=== PATIENT | female | born 1960 | race Caucasian/White ===

== ENCOUNTER 2018-04-12 10:17 | Observation (INO) ==
--- NOTE | 2018-04-12 11:22 | XR ---
EXAM DATE: 04/12/2018 11:19 AM EST AGE/SEX: 57 years / Female INDICATIONS: . Chest pain on and off x 3 weeks. CLINICAL DATA: This is the patient's initial encounter. Patient reports that signs and symptoms have been present for 1 day and indicates a pain score of 0/10. MEDICAL/SURGICAL HISTORY: None. None. COMPARISON: No prior exams available for comparison. FINDINGS: PA and lateral views of the chest demonstrate a normal-sized cardiac silhouette. There is no effusion , consolidation, or pneumothorax. The bones and soft tissues demonstrate no acute abnormality. CONCLUSION: No acute cardiopulmonary abnormality is identified. Electronically signed by: Wesly Ferraro MD 04/12/2018 11:20 AM EST
[2018-04-12 11:24] LABS: Baso # (Auto) 0.1 th/mm3 (0.0-0.2); Baso % (Auto) 0.9 % (0.0-2.0); Eos # (Auto) 0.1 th/mm3 (0.0-0.4); Eos % (Auto) 1.3 % (0.0-4.0); Hematocrit 37.9 % (35.0-46.0); Hemoglobin 13.4 gm/dL (11.6-15.3); Lymph # (Auto) 2.7 th/mm3 (1.0-4.8); Lymph % (Auto) 43.1 % (9.0-44.0); Mean Corpuscular HGB Conc 35.2 % (32.0-36.0); Mean Corpuscular Hemoglobin 32.8 pg (27.0-34.0); Mean Corpuscular Volume 93.3 fL (80.0-100.0); Mean Platelet Volume 7.7 fL (7.0-11.0); Mono # (Auto) 0.5 th/mm3 (0.0-0.9); Mono % (Auto) 7.9 % (0.0-8.0); Neut # (Auto) 2.9 th/mm3 (1.8-7.7); Neut % (Auto) 46.8 % (16.0-70.0); Platelet Count 239 th/mm3 (150-450); Red Blood Count 4.07 mil/mm3 (4.00-5.30); Red Cell Distribution Width 12.5 % (11.6-17.2); White Blood Count 6.2 th/mm3 (4.0-11.0)
[2018-04-12 11:31] LABS: Prothrombin Time 10.3 sec (9.8-11.6)
[2018-04-12 11:39] LABS: Alanine Aminotransferase 32 U/L (10-53); Albumin 3.6 g/dL (3.4-5.0); Anion Gap 7 meq/L (5-15); Aspartate Aminotransferase 13 U/L (15-37); Blood Urea Nitrogen 11 mg/dL (7-18); Calcium 8.2 mg/dL (8.5-10.1); Carbon Dioxide 26.5 meq/L (21.0-32.0); Chloride 106 meq/L (98-107); Glomerular Filtration Rate 69 mL/min (>89); Glucose,Random 203 mg/dL (74-106); Sodium 139 meq/L (136-145)
[2018-04-12 11:43] LABS: Alkaline Phosphatase 87 U/L (45-117); Total Protein 7.5 g/dL (6.4-8.2)
--- NOTE | 2018-04-12 14:21 | ED ---
HPI General Chief Complaint: Chest Pain Stated Complaint: Chest pain/Dizziness Time Seen by Provider: 04/12/18 13:22 Source: patient and family Mode of arrival: ambulatory Limitations: no limitations History of Present Illness HPI narrative: Ms Cabezas is a 57 year old female who presents to the ED complaining of dizziness, palpitations, and SOB. The patient states that starting several weeks ago she began having episodes of dizziness, palpitations , and SOB that were intermittent and occurred every few days. She states that when this happens she feels like she cannot get air in and the room is spinning. She flew to [place] from [place] on Saturday 04/07 and has had symptoms every day since. Today the symptoms have been constant. Her friend, who is a nurse, states that when she had the first episode here, she took her vitals and during the episode the patient's BP was 136/64, P 40, and SpO2 89%. The patient states that when this happens she can cough or breathe deeply through her nose and the symptoms will stop. She also describes a dull ache in the left side of her chest that occurs intermittently and is rated as a 3-4/10. The patient has CAD and has had several stents placed in the past. She states that this pain in her chest feels similar to when she had to have the stents placed but it was constant then. The patient's PMH is also significant for rheumatic heart disease with all 4 valves involved. She denies taking a blood thinner and has never had a DVT or PE. She last saw her manager spanish 1 year ago and a stress test was performed. She thinks her last echocardiogram was 2-3 years ago. The patient smokes 1 pack of cigarettes per day but denies alcohol or drug use. Related Data Home Medications Medication Instructions Recorded Confirmed atenolol 12.5 mg PO DAILY 04/12/18 04/12/18 coenzyme Q10 [CoQ-10] 400 mg PO DAILY 04/12/18 04/12/18 fluoxetine [Prozac] 20 mg PO DAILY 04/12/18 04/12/18 isosorbide mononitrate 10 mg PO DAILY 04/12/18 04/12/18 vfrikxrsraox-lxz-nrdn-FA-vit K 1 tab-cap PO DAILY 04/12/18 04/12/18 [Multi For Her] sulfamethoxazole-trimethoprim 1 tab PO DAILY 04/12/18 04/12/18 Allergies Allergy/AdvReac Type Severity Reaction Status Date / Time codeine Allergy Vomiting Verified 04/12/18 10:27 hydromorphone [From Dilaudid] Allergy Vomiting Verified 04/12/18 10:27 Review of Systems ROS: all other systems reviewed are negative [facility] Medical History Medical History Coronary stent patent (Acute) Fibromyalgia (Acute) Hyperlipemia (Acute) Hypertension (Acute) Rheumatic heart disease (Acute) Social History Social History Substance History: No History of Abuse Second Hand Smoke Exposure: No Smoking Status: Current every day smoker Tobacco Type: E-Cigarettes How Often Do You Have a Drink Containing Alcohol: Never Recent Travel in [facility] within the Last 8 Weeks: No Recent Out of Country Travel within the Last 8 Weeks: No Immunization History Tetanus Immunization: >5 Years Exam Narrative Exam Narrative: GENERAL: Patient is a well developed well nourished female in [facility]. SKIN: Warm and dry. HEAD: Atraumatic. Normocephalic. EYES: Pupils equal and round and reactive. No scleral icterus. No injection or drainage. ENT: No nasal bleeding or discharge. Mucous membranes pink and moist. NECK: Trachea midline. No JVD. CARDIOVASCULAR: Regular rate and rhythm. No rubs or gallops. RESPIRATORY: No accessory muscle use. Clear to auscultation. Breath sounds equal bilaterally. GASTROINTESTINAL: Abdomen soft, non-tender, nondistended. Hepatic and splenic margins not palpable. MUSCULOSKELETAL: Extremities without clubbing, cyanosis, or edema. No obvious deformities. Full ROM of the upper and lower extremities bilaterally. 2+ pulses in the upper and lower extremities bilaterally. NEUROLOGICAL: Awake and alert. No obvious cranial nerve deficits. Motor grossly within normal limits. Five out of 5 muscle strength in the arms and legs. Normal speech. PSYCHIATRIC: Appropriate mood and affect; insight and judgment normal. Course Initial Documented Vital Signs Temperature 98.7 F 04/12/18 10:18 Pulse Rate 72 04/12/18 10:18 Respiratory Rate 16 04/12/18 10:18 Blood Pressure 166/72 H 04/12/18 10:18 Pulse Oximetry 98 04/12/18 10:18 Last Documented Vital Signs Temperature 98.7 F 04/12/18 10:18 Pulse Rate 68 04/12/18 14:40 Respiratory Rate 17 04/12/18 14:40 Blood Pressure 156/67 H 04/12/18 14:40 Pulse Oximetry 98 04/12/18 14:40 Medical Decision Making MDM Narrative Medical decision making narrative: 57-year-old female that presents to the ED for evaluation of chest pain. Patient was properly examined and was found to have signs and symptoms of unclear etiology. Patient does have significant cardiac disease. Concern for PE. CTA as well as labs were done. Labs were initially done in triage and were all negative. Patient was reassured. CTA was negative but did show coronary artery disease. At this time I recommend admission for further evaluation and treatment. Patient is in agreement with this. Patient was given aspirin here. Currently chest pain-free so no nitroglycerin was given. Case discussed with my attending Dr. villalobos who agrees with admission plan. Admitted to chest pain center by me. Medical Screen Exam Complete: Yes Emergency Medical Condition: Yes Differential Diagnosis Differential Diagnosis: chest pain vs atypical chest pain vs PE vs arrhythmia Medical Records Medical records reviewed: Yes I reviewed the patient's medical records. Lab Data Lab results reviewed: Yes I reviewed the patient's lab results. Result diagrams: 04/12/18 10:53 04/12/18 10:53 Lab Results 04/12/18 04/12/18 04/12/18 Range/Units 10:53 10:53 10:53 WBC 6.2 (4.0-11.0) th/mm3 RBC 4.07 (4.00-5.30) mil/mm3 Hgb 13.4 (11.6-15.3) gm/dL Hct 37.9 (35.0-46.0) % MCV 93.3 (80.0-100.0) fL MCH 32.8 (27.0-34.0) pg MCHC 35.2 (32.0-36.0) % RDW 12.5 (11.6-17.2) % Plt Count 239 (150-450) th/mm3 MPV 7.7 (7.0-11.0) fL Neut % (Auto) 46.8 (16.0-70.0) % Lymph % (Auto) 43.1 (9.0-44.0) % [place] % (Auto) 7.9 (0.0-8.0) % Eos % (Auto) 1.3 (0.0-4.0) % Baso % (Auto) 0.9 (0.0-2.0) % Neut # (Auto) 2.9 (1.8-7.7) th/mm3 Lymph # (Auto) 2.7 (1.0-4.8) th/mm3 [place] # (Auto) 0.5 (0.0-0.9) th/mm3 Eos # (Auto) 0.1 (0.0-0.4) th/mm3 Baso # (Auto) 0.1 (0.0-0.2) th/mm3 WBC Differential . Differential Comment Auto diff final PT 10.3 (9.8-11.6) sec INR 1.0 Ratio Sodium 139 (136-145) meq/L Potassium 4.0 (3.5-5.1) meq/L Chloride 106 (98-107) meq/L Carbon Dioxide 26.5 (21.0-32.0) meq/L Anion Gap 7 (5-15) meq/L BUN 11 (7-18) mg/dL Creatinine 0.85 (0.50-1.00) mg/dL Estimated GFR 69 L (>89) mL/min Random Glucose 203 H (74-106) mg/dL Calcium 8.2 L (8.5-10.1) mg/dL Total Bilirubin 0.2 (0.2-1.0) mg/dL AST 13 L (15-37) U/L ALT 32 (10-53) U/L Alkaline Phosphatase 87 (45-117) U/L Troponin I Less than 0.02 L (0.02-0.05) ng/mL Total Protein 7.5 (6.4-8.2) g/dL Albumin 3.6 (3.4-5.0) g/dL Imaging Data Attestation: I personally reviewed and interpreted this imaging study as follows : Radiologist's impression: Chest X-Ray 04/12/18 10:29 CONCLUSION: No acute cardiopulmonary abnormality is identified. Chest CTA 04/12/18 14:03 CONCLUSION: 1. No PE is identified. Additionally, no acute abnormality is identified supplying the clinical symptoms. 2. Nonacute findings include mild centrilobular emphysema and coronary artery calcification. ECG Data Attestation: I personally reviewed and interpreted this ECG as follows: Interpretation: EKG shows sinus rhythm with no sign of acute ischemia and arrhythmia. Read by me and attending. Discharge Plan Discharge Disposition Patient Disposition: ED Admit(ED Internal Use Only) Discharge Order Discharge Orders: ED Use Only Admit Order (Routine); Ordered 04/12/18 Ordered By: Rock Frey Discharge Details Diagnosis: Chest pain, rule out acute myocardial infarction Physicians Team ED Provider: Luis Alberto Villalobos ED Midlevel Provider: Rock Frey Rxs /Orders / Referrals /Forms Prescriptions: No Action atenolol 25 mg Tablet 12.5 mg PO DAILY RF: 0 sulfamethoxazole-trimethoprim 800-160 mg Tablet 1 tab PO DAILY RF: 0 isosorbide mononitrate 10 mg Tablet 10 mg PO DAILY RF: 0 fluoxetine [Prozac] 20 mg Capsule 20 mg PO DAILY RF: 0 coenzyme Q10 [CoQ-10] 100 mg Capsule 400 mg PO DAILY RF: 0 bgmuttdaqzwc-ulp-jveo-FA-vit K [Multi For Her] 18 mg iron-600 mcg-40 mcg Capsule 1 tab-cap PO DAILY RF: 0 Discharge Instructions Patient Printed Instructions: Chest Pain (ED) Status ED Status: Admitted Observation Patient
[2018-04-12] MEDS ORDERED: Aspirin 325 MG Tablet PO ONE (14:35)
--- NOTE | 2018-04-12 14:54 | CT ---
EXAM DATE: 04/12/2018 2:40 PM EST AGE/SEX: 57 years / Female INDICATIONS: Dizziness, heart palpitations, heavy chest, wheezing. Worse today but intermittent for 3 weeks. CLINICAL DATA: This is the patient's initial encounter. Patient reports that signs and symptoms have been present for 1 day and indicates a pain score of 3/10. MEDICAL/SURGICAL HISTORY: Hypertension. Fibromyalgia, Rheumatic heart disease. Coronary artery eric nt. RADIATION DOSE: 19.37 CTDI (mGy) COMPARISON: C, CHEST 2V PA&LAT, 04/12/2018. . TECHNIQUE: Volumetric scanning was performed using a multi-row detector CT scanner during bolus infu ramona of 100ml ml Omnipaque 350 (iohexol) nonionic water-soluble contrast as a single exam dose. The data was post processed with a variety of visualization algorithms including full volume maximum inte nsity projection and sliding thin slab reformation. Using automated exposure control and adjustment of the mA and/or kV according to patient size, radiation dose was kept as low as reasonably achievabl e to obtain optimal diagnostic quality images. DICOM format image data is available electronically f or review and comparison. FINDINGS: Pulmonary Arteries: No filling defect is identified through the segmental and some of the subsegmenta l level pulmonary arteries. Lungs: No consolidation or pneumothorax is identified. There is mild centrilobular emphysema in the upper lobes. Mediastinum: The heart and great vessels demonstrate no acute abnormality. No lymphadenopathy is vis ualized. Small lymph nodes in the mediastinum are not enlarged by size criteria. Pleurae: No pleural effusion or pleural thickening. Axillae: No lymphadenopathy. Musculoskeletal: No acute osseous abnormality is identified. There are degenerative changes of the t horacic spine. Other: Visualized upper abdominal structures demonstrate no acute abnormality. CONCLUSION: 1. No PE is identified. Additionally, no acute abnormality is identified supplying the clinical symp toms. 2. Nonacute findings include mild centrilobular emphysema and coronary artery calcification. Electronically signed by: Wesly Ferraro MD 04/12/2018 2:52 PM EST
[2018-04-12] MEDS ORDERED: Acetaminophen 500 MG Tablet PO PRN (15:47)
--- NOTE | 2018-04-12 17:01 | P.HPCA ---
History of Present Illness Primary Care Physician: PCP in [place] Chief Complaint: Chest pain, dizziness History of Present Illness: 57 year old female with history of CAD, x5 cardiac stents, rheumatic heart disease, hypertension, and hyperlipidemia presents to ER for further evaluation of episodes of dyspnea, "gasping for breath," chest heaviness, palpation, and dizziness episodes. Onset 3 weeks ago. Initially episodes would occur every 2- 3 days, lasting approximately 1 minute. No precipitating factors. Denies syncopal episodes. Since arriving to [place] 04/07/18 reports episodes occurred daily. She is visiting family. Today reports constant dizziness. Chest discomfort has waxed and waned in intensity, never fully resolving. Location of chest discomfort left anterior chest. No radiation. No associated symptoms of nausea or vomiting. A friend who reports being a nurse took vitals during last nights episode and reports bp 136/64, HR 40, spo2 89%. No n recent illness , fever, or injury. Endorses history of vertigo many years ago however did not have accompanied chest heaviness or palpitations. Similar chest discomfort prior to cardiac stents placed. Past cardiac testing Reports recent normal cardiac nuclear testing Spring of this year. Currently does not have barber tool sharpener since summer, apparently barber tool sharpener license was revoked. 2009-cardiac catheterization x4 stents placed 2010-cardiac catheterization x1 stent placed Social history Known coronary artery disease, hypertension, and hyperlipidemia. No known diabetes. Former smoker quit 10 years ago. Reports vaping daily. Rare social alcohol use. No recreational drug use. Visiting from [place]. Endorses active lifestyle, however does not have a formal exercise routine. Family history Sister myocardial infarction age 52. Parents are alive and well, mother CVA x2 , father lung cancer in remission. - Diagnosis (1) Chest pain, rule out acute myocardial infarction (2) Depression (3) History of coronary artery disease Review of Systems All other systems reviewed negative except as stated in HPI [facility] - History History Provided By: Patient - Medical History Medical History: Medical History (Last Updated 04/12/18 @ 16:44 by SARA Ngo) Fibromyalgia Hyperlipemia Hypertension Rheumatic heart disease Vertigo - Surgical History Surgical History: Surgical History (Last Reviewed 04/12/18 @ 16:44 by SARA Ngo) History of heart artery stent - Family History Family History: Family History (Last Updated 12/06/18 @ 16:45 by SARA Ngo) Father Lung cancer Sister Myocardial infarction Mother CVA (cerebral vascular accident) - Social History I have reviewed the patient's Social History: Yes - Tobacco History Second Hand Smoke Exposure: No Tobacco Use In Past 30 Days: Yes Smoking Status: Current every day smoker Tobacco Type: E-Cigarettes Packs Per Day: 1 Years Smoked: 30 Number of Pack Years (if former smoker): 30 - Alcohol History How Often Do You Have a Drink Containing Alcohol: Never - Substance Use History Substance History: No History of Abuse - Travel History History of Recent Travel: Yes (flew from [place] to [place] 04/07/18) Recent Travel in the [facility] Within the Last 8 Weeks: No Recent Travel Out of the Country Within the Last 8 Weeks: No - Immunization History Tetanus Immunization: >5 Years Medications and Allergies Active Medications: Active Medications Acetaminophen (Tylenol) 500 mg PO Q4H PRN PRN Reason: HEADACHE Nitroglycerin (Nitrostat Sl) 0.4 mg SL Q5M PRN PRN Reason: CHEST PAIN Ondansetron HCl (Zofran Inj) 4 mg IV.PUSH Q6H PRN PRN Reason: NAUSEA Sodium Chloride (Ns Flush) 2 ml IV.FLUSH PRN PRN PRN Reason: FLUSH AFTER USING IV ACCESS Sodium Chloride (Ns Flush) 2 ml IV.FLUSH BID MIREYA Allergies Allergy/AdvReac Type Severity Reaction Status Date / Time codeine Allergy Vomiting Verified 04/12/18 10:27 hydromorphone [From Dilaudid] Allergy Vomiting Verified 04/12/18 10:27 Home Medications Medication Instructions Recorded Confirmed Type atenolol 12.5 mg PO DAILY 04/12/18 04/12/18 History coenzyme Q10 [CoQ-10] 400 mg PO DAILY 04/12/18 04/12/18 History fluoxetine [Prozac] 20 mg PO DAILY 04/12/18 04/12/18 History isosorbide mononitrate 10 mg PO DAILY 04/12/18 04/12/18 History raoflphjxcgd-lfa-bgej-FA-vit K 1 tab-cap PO DAILY 04/12/18 04/12/18 History [Multi For Her] sulfamethoxazole-trimethoprim 1 tab PO DAILY 04/12/18 04/12/18 History Exam Vital signs: Vital Signs 04/12/18 10:18 04/12/18 13:23 04/12/18 14:40 Temperature 98.7 F Pulse Rate 72 61 68 Respiratory Rate 16 18 17 Blood Pressure 166/72 H 161/96 H 156/67 H Pulse Oximetry 98 99 98 Intake & Output 04/11/18 04/12/18 04/12/18 18:59 06:59 18:59 Weight 77.111 kg Narrative: GENERAL: Alert WN, WD, NAD, pleasant, female HEAD: NC, AT EYES: Sclera clear, conjunctiva without injection, pupils equal and round ENT: Mucous membranes pink and moist NECK: Supple, no masses, trachea midline CV: RRR, 2/6 systolic murmur, no rub or gallop RESP: Diminished lungs throughout bilateral, no crackles, wheeze, rhonchi, symmetrical chest rise, nonlabored, able to speak in full sentences ABD: Soft, NT, ND, no masses, positive bowel tones EXT: Pulses +2x4, no dependent edema MS: Normal tone x4 extremities, nontender, no obvious deformities, full range of motion NEURO: Motor strength 5/5 PSYCH: A+O x3, pleasant affect, appropriate speech, mood, insight and judgment SKIN: Normal turgor, normal texture, no lesions, no rashes, even hair distribution, tattoos Results 04/12/18 10:53 04/12/18 10:53 Cardiac Enzymes 04/12/18 Range/Units 10:53 AST 13 L (15-37) U/L Troponin I Less than 0.02 L (0.02-0.05) ng/mL Coagulation 04/12/18 Range/Units 10:53 PT 10.3 (9.8-11.6) sec CBC 04/12/18 Range/Units 10:53 WBC 6.2 (4.0-11.0) th/mm3 RBC 4.07 (4.00-5.30) mil/mm3 Hgb 13.4 (11.6-15.3) gm/dL Hct 37.9 (35.0-46.0) % Plt Count 239 (150-450) th/mm3 Neut # (Auto) 2.9 (1.8-7.7) th/mm3 Lymph # (Auto) 2.7 (1.0-4.8) th/mm3 [place] # (Auto) 0.5 (0.0-0.9) th/mm3 Eos # (Auto) 0.1 (0.0-0.4) th/mm3 Baso # (Auto) 0.1 (0.0-0.2) th/mm3 Comprehensive Metabolic Panel 04/12/18 Range/Units 10:53 Sodium 139 (136-145) meq/L Potassium 4.0 (3.5-5.1) meq/L Chloride 106 (98-107) meq/L Carbon Dioxide 26.5 (21.0-32.0) meq/L BUN 11 (7-18) mg/dL Creatinine 0.85 (0.50-1.00) mg/dL Calcium 8.2 L (8.5-10.1) mg/dL AST 13 L (15-37) U/L ALT 32 (10-53) U/L Alkaline Phosphatase 87 (45-117) U/L Total Protein 7.5 (6.4-8.2) g/dL Albumin 3.6 (3.4-5.0) g/dL Intake and Output 04/12/18 04/12/18 04/12/18 06:59 14:59 22:59 Other: Weight 77.111 kg Patient Weight 04/13/18 06:59 Weight 77.111 kg - Imaging and Cardiology Imaging: Impressions Chest X-Ray 04/12/18 10:29 CONCLUSION: No acute cardiopulmonary abnormality is identified. Chest CTA 04/12/18 14:03 CONCLUSION: 1. No PE is identified. Additionally, no acute abnormality is identified supplying the clinical symptoms. 2. Nonacute findings include mild centrilobular emphysema and coronary artery calcification. EKG interpretations - EKG EKG results cardiology: sinus rhythm, normal axis, normal QRS, normal ST/T Caprini VTE Risk Assessment Caprini VTE Risk Assessment: No/Low Risk (score <= 1) Caprini Risk Assessment Model: Point Value = 1 Point Value = 2 Point Value = 3 Point Value = 5 Age 41-60 Minor surgery BMI > 25 kg/m2 Swollen legs Varicose veins or History of unexplained or recurrent spontaneous Oral contraceptives or hormone replacement Sepsis (< 1 month) Serious lung disease, including pneumonia (< 1 month) Abnormal pulmonary function Acute myocardial infarction Congestive heart failure (< 1 month) History of inflammatory bowel disease Medical patient at bed rest Age 61-74 Arthroscopic surgery Major open surgery (> 45 min) Laparoscopic surgery (> 45 min) Malignancy Confined to bed (> 72 hours) Immobilizing plaster cast Central venous access Age >= 75 History of VTE Family history of VTE Factor V Leiden Prothrombin [id number] Lupus anticoagulant Anticardiolipin antibodies Elevated serum homocysteine Heparin-induced thrombocytopenia Other congenital or acquired thrombophilia Stroke (< 1 month) Elective arthroplasty Hip, pelvis, or leg fracture Acute spinal cord injury (< 1 month) Prophylaxis Regimen: Total Risk Factor Score Risk Level Prophylaxis Regimen 0-1 Low Early ambulation 2 Moderate Order ONE of the following: *Sequential Compression Device (SCD) *Heparin 5000 units SQ BID 3-4 Higher Order ONE of the following medications: *Heparin 5000 units SQ TID *Enoxaparin/Lovenox 40 mg SQ daily (WT < 150 kg, CrCl > 30 mL/min) *Enoxaparin/Lovenox 30 mg SQ daily (WT < 150 kg, CrCl > 10-29 mL/min) *Enoxaparin/Lovenox 30 mg SQ BID (WT < 150 kg, CrCl > 30 mL/min) AND/OR *Sequential Compression Device (SCD) 5 or more Highest Order ONE of the following medications: *Heparin 5000 units SQ TID (Preferred with Epidurals) *Enoxaparin/Lovenox 40 mg SQ daily (WT < 150 kg, CrCl > 30 mL/min) *Enoxaparin/Lovenox 30 mg SQ daily (WT < 150 kg, CrCl > 10-29 mL/min) *Enoxaparin/Lovenox 30 mg SQ BID (WT < 150 kg, CrCl > 30 mL/min) AND *Sequential Compression Device (SCD) Assessment and Plan - Assessment (1) Chest pain, rule out acute myocardial infarction Code(s): R07.9 - Chest pain, unspecified Status: Acute Plan: Admitted chest pain center. Rule out using standard chest pain center protocol including 3 sets of EKGs and cardiac enzymes. Discussed possibility of repeating nuclear stress test. This will be determined after evaluation by barber tool sharpener. Patient requesting echocardiogram, again informed her this will be determined after evaluation by barber tool sharpener. She is agreeable to plan of care. Encouraged to establish with a barber tool sharpener. (2) Depression Code(s): F32.9 - Major depressive disorder, single episode, unspecified Status : Chronic Plan: Continue fluoxetine (3) History of coronary artery disease Code(s): Z86.79 - Personal history of other diseases of the circulatory system Status: Chronic Plan: Continue atenolol. Continue isosorbide once updated in EMR. Unclear why she is not on statin therapy. (2) Depression Qualifiers: Depression Type: unspecified Qualified Code(s): F32.9 - Major depressive disorder, single episode, unspecified
[2018-04-12 17:09] VITALS: RESP 16
--- NOTE | 2018-04-12 17:15 | ECG ---
Date Performed: 04/12/2018 Time Performed: 10:37:00 PTAGE: 57 years EKG: Sinus rhythm NORMAL ECG NO PREVIOUS TRACING DOCTOR: Lisa Mathews Interpretating Date/Time 04/12/2018 17:13:43
[2018-04-12 17:24] LABS: Creatine Kinase 60 U/L (26-192)
[2018-04-12 20:12] LABS: Creatine Kinase 60 U/L (26-192)
[2018-04-13 08:13] VITALS: PULSE 69; TEMP 97.9; O2SAT 97
[2018-04-13] MEDS ORDERED: FLUoxetine 20 MG Capsule PO SCH (09:00)
[2018-04-13] MEDS ORDERED: Atenolol 25 MG Tablet PO SCH (09:00)
[2018-04-13] MEDS ORDERED: Multivitamin/Minerals Therapeutic Tablet PO SCH (09:00)
[2018-04-13] MEDS ORDERED: Regadenoson Inj 0.4 MG/5 ML Syringe IV.PUSH ONE (09:50)
--- NOTE | 2018-04-13 11:07 | NM ---
EXAM DATE: 04/13/2018 10:43 AM EST AGE/SEX: 57 years / Female INDICATIONS:Angina. Coronary artery disease Mid chest pain with shortness of breath for 3 weeks. CLINICAL DATA: This is the patient's initial encounter. Patient reports that signs and symptoms have been present for 3 weeks and indicates a pain score of 2/10. MEDICAL/SURGICAL HISTORY: Hypertension. Coronary artery stent. COMPARISON: No prior exams available for comparison. No external comparison. DOSE: 8.7 mCi Tc 99m Myoview at rest 25.4 mCi [id number] at stress 0.4 mg Lexiscan STRESS SYMPTOMS: Dyspnea, headache, chest pressure, stomach pressure and leg weakness. EJECTION FRACTION: 61 % TECHNIQUE: The patient underwent pharmacologic stress with infusion of prescribed dose. Continuous ECG tracing was monitored during stress. Gated SPECT imaging was performed after stress and conventi onal SPECT imaging was performed at rest. The examination was performed on a SPECT/CT scanner, both attenuation and non-corrected datasets were reviewed. FINDINGS: Distribution: The maximum perfused segment at stress is in the anterolateral wall. Perfusion Study: The pattern of perfusion at stress is within normal limits. No fixed or reversib le perfusion defect is identified. Gated Study: There are intact wall motion and wall thickening without hypokinetic or dyskinetic segm ents. The ejection fraction is calculated at 61%. RISK CATEGORY: Low (<1% Annual Motality Rate) CONCLUSION: 1. Left ventricle perfusion is within normal limits. 2. Normal left ventricle wall motion and ejection fraction. Electronically signed by: Wesly Ferraro MD 04/13/2018 11:05 AM EST
[2018-04-13 12:33] VITALS: BP 134/63
--- NOTE | 2018-04-13 14:45 | ECG ---
Date Performed: 04/12/2018 Time Performed: 19:43:14 PTAGE: 57 years EKG: Sinus rhythm NORMAL ECG PREVIOUS TRACING : 04/12/2018 16.42 Since previous tracing, no significant change noted DOCTOR: Sonny Mckeon Interpretating Date/Time 04/13/2018 14:44:18
--- NOTE | 2018-04-13 14:47 | ECG ---
Date Performed: 04/12/2018 Time Performed: 16:42:25 PTAGE: 57 years EKG: SINUS BRADYCARDIA BORDERLINE ECG PREVIOUS TRACING : 04/12/2018 10.37 Since previous tracing, no significant change noted DOCTOR: Sonny Mckeon Interpretating Date/Time 04/13/2018 14:45:44
--- NOTE | 2018-04-13 14:50 | TR ---
Date Performed: 04/13/2018 Time Performed: 09:55:30 DOCTOR: Sonny Mckeon DRUG LIST: CLINICAL HISTORY: REASON FOR TEST: REASON FOR ENDING: OBSERVATION: CONCLUSION: COMMENTS: Lexiscan stress test was performed under standard four minute protocol. Radionuclide was injected one minute prior to ending the test. No electrocardiographic abormalities were present t o suggest ischemia. Nuclear imaging and interpretation are pending.
== END 2018-04-13 13:15 | disposition home or self-care (01) ==
LOC: NEPE 10:17 → NEDA 10:17 → NEPGCP 17:15
PROVIDERS: ADMIT Internal Medicine Interventional Cardiology; ATTEND Internal Medicine Interventional Cardiology
DX: I10 Essential (primary) hypertension; Z82.49 Family history of ischemic heart disease and other diseases of the circulatory system; I09.9 Rheumatic heart disease, unspecified; R07.9 Chest pain, unspecified; M79.7 Fibromyalgia; Z82.3 Family history of stroke; F32.9 Major depressive disorder, single episode, unspecified; F17.210 Nicotine dependence, cigarettes, uncomplicated; Z95.5 Presence of coronary angioplasty implant and graft; E78.5 Hyperlipidemia, unspecified; Z80.1 Family history of malignant neoplasm of trachea, bronchus and lung; Z88.5 Allergy status to narcotic agent; I25.10 Atherosclerotic heart disease of native coronary artery without angina pectoris